=== PATIENT | male | born 1945 | race Caucasian/White ===

== ENCOUNTER 2025-01-16 01:18 | Emergency (ER) | payer MEDICARE, SELFPAY ==
[2025-01-16] VITALS (12 sets, daily range): BP systolic 146–173; BP diastolic 78–101; PULSE 78–104; RESP 15–20; TEMP 37.1; O2SAT 95–100
--- NOTE | ~2025-01-16 | CT_ITS ---
EXAMINATION: CT brain wo con DATE: 01/16/2025 04:08 INDICATION: Seizure. TECHNIQUE: Computed tomography (CT) of the head was performed without intravenous contrast. The mA wa s adjusted according to patient size. Iterative reconstruction technique was employed. The dose-lengt h product was 681.00 mGy-cm. COMPARISON: None FINDINGS: There are scattered areas of low attenuation in the cerebral white matter, which is within normal limits for the patient's age. There is no intracranial hemorrhage or acute infarction. There i s a 1.4 x 1.4 x 0.7 cm extra-axial mass that is isodense to rodriguez matter overlying left frontotemporal region. The ventricles are normal in size. There is mucosal thickening in the paranasal sinuses. The orbits are normal. The mastoid air cells are normal. IMPRESSION: 1. 1.4 cm extra-axial mass overlying left frontotemporal region, consistent with a meningioma. Reviewed, dictated and finalized at location A. IMPRESSION: 1. 1.4 cm extra-axial mass overlying left frontotemporal region, consistent wit h a meningioma.
--- NOTE | 2025-01-16 01:26 | ECG_ITS ---
Test Date: 2025-01-16 01:28:53 Measurements Intervals [place] Rate: 92 P: 56 [place]: 146 QRS: -11 QRSD: 101 T: 42 QT: 351 QTc: 434 Interpretive Statements SINUS RHYTHM No previous ECG available for comparison Electronically Signed On 01-17-2025 15:25:13 CDT by Gwen Goodwin M.D.
--- NOTE | 2025-01-16 01:33 | PC.NURSE ---
patient states that he drank a manhantan tonight and two glasses of it. pt denies taking drugs.
[2025-01-16 01:39] LABS: Glucose Point of Care 122 mg/dl (65-105)
[2025-01-16 01:48] LABS: Basophils Absolute Auto 0.1 K/mm3 (0.0-0.1); Basophils Percent Auto 0.8 % (0.2-1.2); Eosinophils Absolute Auto 0.3 K/mm3 (0-0.3); Eosinophils Percent Auto 4.6 % (0-4.4); Hematocrit 48.2 % (42.0-52.0); Hemoglobin 16.2 g/dL (14.0-18.0); Immature Granulocyte Absolute 0.02 K/mm3 (0.00-0.031); Immature Granulocyte Percent A 0.3 % (0-0.5); Lymphocytes Absolute Auto 1.78 K/mm3 (0.9-3.2); Lymphocytes Percent Auto 28.5 % (18.3-44.2); Mean Corpuscular HGB Conc 33.6 g/dl (32-36); Mean Corpuscular Hemoglobin 30.7 pg (26-34); Mean Corpuscular Volume 91.5 fl (80-100); Mean Platelet Volume 11.5 fl (7.4-10.4); Monocytes Absolute Auto 0.5 K/mm3 (0.1-0.6); Monocytes Percent Auto 8.3 % (2.6-8.5); Neutrophils Absolute Auto 3.6 K/mm3 (1.3-6.7); Neutrophils Percent Auto 57.5 % (45.5-73.1); Platelet Count Result 196 k/mm3 (150-375); Red Blood Count 5.27 M/mm3 (4.6-6.20); Red Cell Distribution Width 13.4 % (11.5-14.5); White Blood Count 6.2 K/mm3 (4.5-10.0)
[2025-01-16 02:06] LABS: Alanine Aminotransferase 23 U/L (6-50); Albumin Level 4.3 g/dL (3.5-5.1); Alkaline Phosphatase 70 U/L (38-126); Anion Gap 15 mmol/L (4-12); Aspartate Amino Transferase 28 U/L (17-59); Bilirubin,Total 0.4 mg/dL (0.2-1.3); Blood Urea Nitrogen 14 mg/dL (9-20); Calcium 9.2 mg/dL (8.4-10.2); Carbon Dioxide 23 mmol/L (22-30); Chloride 104 mmol/L (98-107); Estimated CRCL calculation 56 ml/min; Estimated Glomerular Filt Rate > 60; Glucose 117 mg/dL (65-110); Potassium 4.3 mmol/L (3.4-5.0); Sodium 142 mmol/L (137-145)
--- NOTE | 2025-01-16 03:42 | ED_ITS ---
HPI - Seizure General Chief Complaint: Seizure Stated Complaint: SZ Time Seen by Provider: 01/16/25 03:40 Source: patient, family, EMS and RN notes reviewed Limitations: other (Mildly hard of hearing but understands when spoken to closely) History of Present Illness HPI Narrative: Patient presents after report of a tonic clonic seizure that lasted approximately 2-3 minutes. He was initially reported as unresponsive but then became agitated and combative in his postictal state during transport. 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 There is also report that potentially he has had another seizure that was different than absent seizure but not a full tonic-clonic seizure as today. Not on any antiseizure medication. Patient is initially postictal upon arrival to the emergency department but becoming more alert and oriented and cooperative. He is fully back to baseline at the time of my assessment. He had otherwise been in his baseline state of health without any fevers or chills. Has had no complaints of sick symptoms. He does state that he has been sleeping poorly lately. He also had alcohol tonight, whiskey x2 drinks which was unusual for him. Has a neurologist and neurosurgeon through [facility] where his entire care team is. He notes that he had an MRI of his brain performed June 06, 2024 (as well as August 12, 2017 December 04, 2016). He is not on any antiepileptic drugs but does take vitamin B12 and vitamin B6 in addition to finasteride. Patient provides a list of his specialists through [facility] with phone numbers. Colonoscopy: Early Kaitlyn GI / prostate : Marty Shell GP: Doug Zavala Neurosurgery: Sanchez Rendon Urologist: Slime Schmidt Neurologist: Ignacio Sweet Television Repairman: Remington Muir Neurologist: Jose Angel Mccormack Foundry Hand: Luli Ann Surgical: Dylon Navarro Related Data Allergies Allergy/AdvReac Type Severity Reaction Status Date / Time No Known Allergies Allergy Unverified 09/15/13 17:01 [facility] Past Medical History Medical History (Updated 01/17/25 @ 18:46 by Amena Lang MD) Absence seizure Brain tumor Hard of hearing Transient cerebral ischemic attack Surgical History Surgical History History of colonoscopy Nov Exam 2 Narrative: GENERAL: Well-appearing, well-nourished, and in no acute distress. HEAD: Normocephalic, atraumatic. EYES: Non injected, non icteric ENT: Nares clear, no rhinorrhea or epistaxis. Tongue trauma with mild abrasion on the left and small laceration on the right, bleeding well controlled. Hard of hearing but can hear and understand when spoken to slowly and at close range. NECK: Supple. CHEST: Speaking in full sentences. No respiratory distress. HEART: Regular rate and rhythm. . ABDOMEN: Soft, nondistended. EXTREMITIES: Normal range of motion. No lower extremity edema. SKIN: Warm, dry, no rash. NEURO: No focal deficits. Alert and oriented x3. Follows commands and answers questions appropriately. Speaks clearly without aphasia or dysarthria. PSYCH: Normal mood and affect. Course Vital Signs Vital signs: Vital Signs Temperature 98.8 F 01/16/25 01:16 Pulse Rate 104 H 01/16/25 01:16 Respiratory Rate 15 01/16/25 01:16 Blood Pressure 171/101 H 01/16/25 01:16 Pulse Oximetry 96 01/16/25 01:16 Oxygen Delivery Room Air 01/16/25 01:16 Temperature 98.8 F 01/16/25 01:16 Pulse Rate 78 01/16/25 06:54 Respiratory Rate 16 01/16/25 06:54 Blood Pressure 146/78 H 01/16/25 06:54 Pulse Oximetry 98 01/16/25 06:54 Oxygen Delivery Room Air 01/16/25 01:20 MDM - Seizure MDM Narrative Medical decision making narrative: Patient with a history of a frontal lobe tumor who has previously had absence seizures presents after report of a tonic colonic seizure that lasted 2-3 minutes. After which he was postictal. Was initially reported that he was unresponsive but then became agitated and combative for EMS. This resolves while in the emergency department he returns to baseline. In the emergency department he is afebrile vital signs notable for mild tachycardia as well as hypertension. Patient's workup largely unremarkable. There is evidence of a brain tumor. Patient already has neurosurgeon, neurologist and rest of specialists through [facility]. Although he is not currently on antiepileptic drug, I did discuss with neurologist on-call Dr Gilliland who concurs that he probably should be now given his seizure semiology changed, recommends 750 BID Keppra, total 1500. Patient given 1st dose in the emergency department the rest of the course prescribed. We discussed why this recommendation was being made and that he could also follow up with his care team. Advised on discharge instructions not to drive until cleared by a neurologist and provided referral for our neurologist versus can follow up with his own. We did discuss that poor sleep and drinking alcohol can lower the seizure threshold for someone who already has a seizure disorder or is at risk of 1. Nevertheless medication is still advised. Verifies understanding. Stable for discharge Lab Data Attestation: I reviewed the patient's lab results. 01/16/25 01:36 01/16/25 01:36 Labs: Lab Results 01/16/25 01/16/25 01/16/25 Range/Units 01:30 01:35 01:36 WBC 6.2 (4.5-10.0) K/mm3 RBC 5.27 (4.6-6.20) M/mm3 Hgb 16.2 (14.0-18.0) g/dL Hct 48.2 (42.0-52.0) % MCV 91.5 (80-100) fl MCH 30.7 (26-34) pg MCHC 33.6 (32-36) g/dl RDW 13.4 (11.5-14.5) % Plt Count 196 (150-375) k/mm3 MPV 11.5 H (7.4-10.4) fl Immature Gran % (Auto) 0.3 (0-0.5) % Neut % (Auto) 57.5 (45.5-73.1) % Lymph % (Auto) 28.5 (18.3-44.2) % Swisher % (Auto) 8.3 (2.6-8.5) % Eos % (Auto) 4.6 H (0-4.4) % Baso % (Auto) 0.8 (0.2-1.2) % Lymph # (Auto) 1.78 (0.9-3.2) K/mm3 Swisher # (Auto) 0.5 (0.1-0.6) K/mm3 Eos # (Auto) 0.3 (0-0.3) K/mm3 Baso # (Auto) 0.1 (0.0-0.1) K/mm3 Abs Immat Gran (auto) 0.02 (0.00-0.031) K/mm3 Absolute Neuts (auto) 3.6 (1.3-6.7) K/mm3 Absolute Nucleated RBC 0.000 (0.0-0.012) K/mm3 Nucleated RBC % 0.0 (0.0-0.2) % PT 13.0 (11.1-14.7) Seconds INR 1.0 APTT 30.0 (22.3-36.8) Seconds Sodium 142 (137-145) mmol/L Potassium 4.3 (3.4-5.0) mmol/L Chloride 104 (98-107) mmol/L Carbon Dioxide 23 (22-30) mmol/L Anion Gap 15 H (4-12) mmol/L BUN 14 (9-20) mg/dL Creatinine 1.13 (0.7-1.3) mg/dL Estim Creat Clear Calc 56 ml/min Estimated GFR > 60 (59 - ) Glucose 117 H (65-110) mg/dL POC Capillary Glucose 122 H (65-105) mg/dl Calcium 9.2 (8.4-10.2) mg/dL Total Bilirubin 0.4 (0.2-1.3) mg/dL AST 28 (17-59) U/L ALT 23 (6-50) U/L Alkaline Phosphatase 70 (38-126) U/L Total Protein 8.0 (6.3-8.2) g/dL Albumin 4.3 (3.5-5.1) g/dL Urine Color (Yellow) Urine Appearance (Clear) Urine pH (5.0-9.0) Ur Specific [place] (1.001-1.035) Urine Protein (Negative) mg/dL Urine Glucose (UA) (Negative) mg/dL Urine Ketones (Negative) mg/dL Ur Blood (Man) (Negative) Urine Nitrate (Negative) Urine Bilirubin (Negative) Urine Urobilinogen (<2.0) mg/dL Leukocyte Esterase Rfl (Negative) BEVERLEY/UL Urine Opiates Screen (Negative) Urine Methadone Screen (Negative) Ur Barbiturates Screen (Negative) Ur Phencyclidine Scrn (Negative) Ur Amphetamine Screen (Negative) U Benzodiazepines Scrn (Negative) Urine Cocaine Screen (Negative) U Cannabinoids Screen (Negative) Ethyl Alcohol < 10 (<10) mg/dL 01/16/25 Range/Units 03:45 WBC (4.5-10.0) K/mm3 RBC (4.6-6.20) M/mm3 Hgb (14.0-18.0) g/dL Hct (42.0-52.0) % MCV (80-100) fl MCH (26-34) pg MCHC (32-36) g/dl RDW (11.5-14.5) % Plt Count (150-375) k/mm3 MPV (7.4-10.4) fl Immature Gran % (Auto) (0-0.5) % Neut % (Auto) (45.5-73.1) % Lymph % (Auto) (18.3-44.2) % Swisher % (Auto) (2.6-8.5) % Eos % (Auto) (0-4.4) % Baso % (Auto) (0.2-1.2) % Lymph # (Auto) (0.9-3.2) K/mm3 Swisher # (Auto) (0.1-0.6) K/mm3 Eos # (Auto) (0-0.3) K/mm3 Baso # (Auto) (0.0-0.1) K/mm3 Abs Immat Gran (auto) (0.00-0.031) K/mm3 Absolute Neuts (auto) (1.3-6.7) K/mm3 Absolute Nucleated RBC (0.0-0.012) K/mm3 Nucleated RBC % (0.0-0.2) % PT (11.1-14.7) Seconds INR APTT (22.3-36.8) Seconds Sodium (137-145) mmol/L Potassium (3.4-5.0) mmol/L Chloride (98-107) mmol/L Carbon Dioxide (22-30) mmol/L Anion Gap (4-12) mmol/L BUN (9-20) mg/dL Creatinine (0.7-1.3) mg/dL Estim Creat Clear Calc ml/min Estimated GFR (59 - ) Glucose (65-110) mg/dL POC Capillary Glucose (65-105) mg/dl Calcium (8.4-10.2) mg/dL Total Bilirubin (0.2-1.3) mg/dL AST (17-59) U/L ALT (6-50) U/L Alkaline Phosphatase (38-126) U/L Total Protein (6.3-8.2) g/dL Albumin (3.5-5.1) g/dL Urine Color Yellow (Yellow) Urine Appearance Clear (Clear) Urine pH 7.5 (5.0-9.0) Ur Specific [place] 1.013 (1.001-1.035) Urine Protein Negative (Negative) mg/dL Urine Glucose (UA) Negative (Negative) mg/dL Urine Ketones Negative (Negative) mg/dL Ur Blood (Man) Negative (Negative) Urine Nitrate Negative (Negative) Urine Bilirubin Negative (Negative) Urine Urobilinogen 0.2 (<2.0) mg/dL Leukocyte Esterase Rfl Negative (Negative) BEVERLEY/UL Urine Opiates Screen Negative (Negative) Urine Methadone Screen Negative (Negative) Ur Barbiturates Screen Negative (Negative) Ur Phencyclidine Scrn Negative (Negative) Ur Amphetamine Screen Negative (Negative) U Benzodiazepines Scrn Negative (Negative) Urine Cocaine Screen Negative (Negative) U Cannabinoids Screen Negative (Negative) Ethyl Alcohol (<10) mg/dL Imaging Data Radiologist's impression: IMPRESSION: 1. 1.4 cm extra-axial mass overlying left frontotemporal region, consistent with a meningioma. ECG Data EKG #1: Attestation: I personally reviewed and interpreted this ECG as follows: ECG completion date: 01/16/25 ECG completion time: 01:28 Interpretation: Normal sinus rhythm at a rate of 92 beats per minute. AL interval 146. QRS 101. QT/QTC 351/400. Good R-wave progression across the precordial leads. No T-wave inversions. Normal ECG. Discharge Plan Discharge Clinical Impression: Seizure, Meningioma Patient Disposition: Home, Self-Care Condition: Stable Instructions: Antibiotic Form, Meningioma (ED), New-Onset Seizure in Adults (ED), Frontal Lobe Seizures (ED) Additional Instructions: Given the nature of your seizure presentation changed, the recommendation from our neurologist would be that you start on an anti-epileptic drug and this has been prescribed. You are also not to drive until you are cleared by a neurologist. You can follow-up with either your neurologist through [facility] or the neurologist listed below. Return to the emergency department with any new or worsening symptoms. Alcohol can lower the seizure threshold meaning people who are at risk of having a seizure can have one more easily. Patient Language: Occitan Prescriptions: New levetiracetam 750 mg tablet 750 mg PO BID 30 Days Qty: 60 0RF Follow-up/Referrals: Sally,Doug Scherer MD [Non-Staff] - Mary Gilliland MD [Physician] - (Neurology) Time of Disposition: 06:31
[2025-01-16 03:50] LABS: Add Urine Microscopic? NO; Appearance Urine Clear (Clear); Bilirubin Urine Negative (Negative); Blood Urine Negative (Negative); Color Urine Yellow (Yellow); Glucose Urine UA Negative (Negative); Ketones Urine Negative (Negative); Leukocyte Esterase Ur Negative LEU/UL (Negative); Nitrate Urine Negative (Negative); Protein Urine Negative (Negative); Specific Grav Ur 1.013 (1.001-1.035); Urobilinogen Urine 0.2 mg/dL (<2.0); pH Urine 7.5 (5.0-9.0)
[2025-01-16 04:24] LABS: Ethanol < 10 mg/dL (<10)
[2025-01-16 04:43] LABS: Barbiturate Screen Urine Negative (Negative); Benzodiazepines Screen Urine Negative (Negative)
[2025-01-16 04:57] LABS: Amphetamine Screen Urine Negative (Negative); Cannabinoid Screen Urine Negative (Negative); Cocaine Screen Urine Negative (Negative); Methadone Screen Urine Negative (Negative); Opiate Screen Urine Negative (Negative); Phencyclidine Screen Urine Negative (Negative)
[2025-01-16] MEDS: levETIRAcetam Tablet 250 MG, levETIRAcetam Tablet 500 MG 750 MG PO (06:47)
== END 2025-01-16 07:21 | disposition home or self-care (01) ==
PROVIDERS: Emergency Provider Student in an Organized Health Care Education/Training Program
DX: R56.9 Unspecified convulsions (principal); D32.0 Benign neoplasm of cerebral meninges; Z86.73 Personal history of transient ischemic attack (TIA), and cerebral infarction without residual deficits
CPT/HCPCS: 36415; 70450; 80053; 80307; 81003; 82077; 82948; 85025; 85610; 85730; 93005; 99284; A9270